=== PATIENT | female | born 1970 | race Caucasian/White ===

== ENCOUNTER → 2016-09-24 12:16 | Outpatient (CLI) | payer BC ==
[2014-12-23 11:02] VITALS: BMI 48.0
[~2016-09-24 12:16] MED LIST: NORCO 10/325 TA1 TA1 PO; PRISTIQ50 MG PO; ZESTORETIC 10/11 TAB PO
[2016-09-24 13:02] LABS: BASOPHILS 1.1 % (0.0-2.0); EOSINOPHILS 1.4 % (0-7); HEMOGLOBIN 12.4 g/dL (12-16); IMMATURE GRANULOCYTES 0.2 % (0-5); LYMPHOCYTES 32.1 % (15-50); MCHC 31.8 g/dL (31.0-37.0); MCV 91.3 fL (80.0-100.0); MONOCYTES 7.3 % (2-11); NEUTROPHILS 57.9 % (40-80); PLATELET COUNT 296 10x3/uL (130-400); RBC 4.27 10x6/uL (4.00-5.40); WBC 6.4 10x3/uL (4.8-10.8)
[2016-09-24 13:11] LABS: APPEARANCE CLEAR (CLEAR); BILIRUBIN NEGATIVE (NEGATIVE); COLOR YELLOW (YELLOW); GLUCOSE NEGATIVE (NEGATIVE); KETONE NEGATIVE (NEGATIVE); LEUKOCYTE ESTERASE NEGATIVE (NEGATIVE); NITRITE NEGATIVE (NEGATIVE); PROTEIN NEGATIVE (NEGATIVE); UROBILINOGEN NORMAL (NORMAL)
[2016-09-24 13:17] LABS: ALBUMIN 3.3 g/dL (3.4-5.0); C-REACTIVE PROTEIN 0.4 mg/dL (0.0-0.9); CREATININE - SERUM 1.1 mg/dL (0.6-1.3); PROTEIN - URINE 34.3 mg/dL (0.0-11.9)
[2016-09-24 13:24] LABS: CREATININE - URINE 236.8 mg/dL (30-125); PRO/CRE RATIO URINE 0.1 mg/g
[2016-09-24 14:20] LABS: ERYTHROCYTE SEDIMENTATION RATE 34 mm/hr (0-20)
== END | disposition home or self-care (01) ==
LOC: D.LAB 09-22 14:54
PROVIDERS: Internal Medicine Rheumatology
DX: M32.8 Other forms of systemic lupus erythematosus (principal)

== ENCOUNTER → 2017-01-20 16:35 | Outpatient (CLI) | payer BC ==
[2014-12-23 11:02] VITALS: BMI 48.0
[2017-01-20 17:24] LABS: BASOPHILS 0.8 % (0-2); EOSINOPHILS 1.3 % (0-7); HEMATOCRIT 40.1 % (36.0-48.0); HEMOGLOBIN 12.8 g/dL (12-16); IMMATURE GRANULOCYTES 0.1 % (0-5); LYMPHOCYTES 40.1 % (15-50); MCH 29.2 pg (26.0-34.0); MCHC 31.9 g/dL (31.0-37.0); MCV 91.6 fL (80.0-100.0); MEAN PLATELET VOLUME 10.5 fL (7.4-10.4); MONOCYTES 5.1 % (2-11); NEUTROPHILS 52.6 % (40-80); PLATELET COUNT 306 10x3/uL (130-400); RBC 4.38 10x6/uL (4.00-5.40); RDW 13.2 % (11.5-14.5); WBC 7.8 10x3/uL (4.8-10.8)
[2017-01-20 17:38] LABS: ALBUMIN 3.7 g/dL (3.4-5.0); APPEARANCE CLEAR (CLEAR); BILIRUBIN NEGATIVE (NEGATIVE); C-REACTIVE PROTEIN 0.6 mg/dL (0.0-0.9); COLOR YELLOW (YELLOW); GLUCOSE NEGATIVE (NEGATIVE); KETONE NEGATIVE (NEGATIVE); LEUKOCYTE ESTERASE NEGATIVE (NEGATIVE); NITRITE NEGATIVE (NEGATIVE); PROTEIN NEGATIVE (NEGATIVE); SPECIFIC GRAVITY 1.015 (1.005-1.020); UROBILINOGEN NORMAL (NORMAL)
[2017-01-20 18:32] LABS: ERYTHROCYTE SEDIMENTATION RATE 54 mm/hr (0-20)
[2017-01-22 10:21] LABS: ANA REFLEX - DBL STRANDED DNA 3 IU/mL (0-9)
[2017-01-22 13:18] LABS: ANA REFLEX - ANTICHROMATIN ABS <0.2 AI (0.0-0.9); ANA REFLEX - CENTROMERE B ABS <0.2 AI (0.0-0.9); ANA REFLEX - DIRECT Positive (Negative); ANA REFLEX - JO-1 AB <0.2 AI (0.0-0.9); ANA REFLEX - RNP ANTIBODIES 1.2 AI (0.0-0.9); ANA REFLEX - SCL-70 <0.2 AI (0.0-0.9); ANA REFLEX - SJOGRENS AB SSA <0.2 AI (0.0-0.9); ANA REFLEX - SJOGRENS AB SSB <0.2 AI (0.0-0.9); ANA REFLEX - SMITH AB 0.2 AI (0.0-0.9)
== END | disposition home or self-care (01) ==
LOC: D.LAB 16:35
PROVIDERS: Internal Medicine Rheumatology
DX: M32.8 Other forms of systemic lupus erythematosus (principal)

== ENCOUNTER → 2017-04-28 16:06 | Outpatient (CLI) | payer BC ==
[2014-12-23 11:02] VITALS: BMI 48.0
[2017-04-28 16:39] LABS: BASOPHILS 0.7 % (0-2); EOSINOPHILS 1.5 % (0-7); HEMATOCRIT 38.4 % (36.0-48.0); HEMOGLOBIN 12.2 g/dL (12-16); IMMATURE GRANULOCYTES 0.1 % (0-5); LYMPHOCYTES 38.2 % (15-50); MCH 29.2 pg (26.0-34.0); MCHC 31.8 g/dL (31.0-37.0); MCV 91.9 fL (80.0-100.0); MEAN PLATELET VOLUME 10.3 fL (7.4-10.4); MONOCYTES 8.8 % (2-11); NEUTROPHILS 50.7 % (40-80); PLATELET COUNT 292 10x3/uL (130-400); RBC 4.18 10x6/uL (4.00-5.40); RDW 13.6 % (11.5-14.5); WBC 6.7 10x3/uL (4.8-10.8)
[2017-04-28 16:57] LABS: PROTEIN - URINE 44.8 mg/dL (0.0-11.9)
[2017-04-28 17:02] LABS: CREATININE - URINE 238.2 mg/dL (30-125)
[2017-04-28 17:18] LABS: APPEARANCE HAZY (CLEAR); BILIRUBIN NEGATIVE (NEGATIVE); COLOR YELLOW (YELLOW); GLUCOSE NEGATIVE (NEGATIVE); KETONE NEGATIVE (NEGATIVE); LEUKOCYTE ESTERASE 2+ (NEGATIVE); NITRITE NEGATIVE (NEGATIVE); PROTEIN NEGATIVE (NEGATIVE); SPECIFIC GRAVITY 1.025 (1.005-1.020); UROBILINOGEN NORMAL (NORMAL)
[2017-04-28 17:19] LABS: ALBUMIN 3.5 g/dL (3.4-5.0); BACTERIA MANY /hpf (NONE SEEN); EPITHELIAL CELLS 0-5 /hpf (0-5); RED CELLS - URINE 0-5 /hpf (0-5)
[2017-04-28 17:21] LABS: COMPLEMENT C4 23.3 mg/dL (17.4-52.2)
[2017-04-28 17:50] LABS: ERYTHROCYTE SEDIMENTATION RATE 45 mm/hr (0-20)
== END | disposition home or self-care (01) ==
LOC: D.LAB 16:06
PROVIDERS: Internal Medicine Rheumatology
DX: M32.9 Systemic lupus erythematosus, unspecified (principal)

== ENCOUNTER → 2017-10-09 09:52 | Outpatient (CLI) | payer BC ==
[2014-12-23 11:02] VITALS: BMI 48.0
[2017-10-09 10:24] LABS: APPEARANCE CLEAR (CLEAR); BILIRUBIN NEGATIVE (NEGATIVE); COLOR YELLOW (YELLOW); GLUCOSE NEGATIVE (NEGATIVE); KETONE NEGATIVE (NEGATIVE); NITRITE NEGATIVE (NEGATIVE); PROTEIN NEGATIVE (NEGATIVE); SPECIFIC GRAVITY 1.015 (1.005-1.020); UROBILINOGEN NORMAL (NORMAL)
[2017-10-09 10:25] LABS: BACTERIA MODERATE /hpf (NONE SEEN); MUCUS <1+ /lpf (NONE SEEN); RED CELLS - URINE OCC /hpf (0-5); WHITE CELLS - URINE 0-5 /hpf (0-5)
[2017-10-09 10:29] LABS: BASOPHILS 1.1 % (0-2); EOSINOPHILS 1.7 % (0-7); HEMATOCRIT 38.4 % (36.0-48.0); HEMOGLOBIN 12.4 g/dL (12-16); IMMATURE GRANULOCYTES 0.2 % (0-5); LYMPHOCYTES 29.5 % (15-50); MCH 29.5 pg (26.0-34.0); MCHC 32.3 g/dL (31.0-37.0); MCV 91.2 fL (80.0-100.0); MEAN PLATELET VOLUME 10.5 fL (7.4-10.4); MONOCYTES 6.9 % (2-11); NEUTROPHILS 60.6 % (40-80); PLATELET COUNT 293 10x3/uL (130-400); RBC 4.21 10x6/uL (4.00-5.40); WBC 4.6 10x3/uL (4.8-10.8)
[2017-10-09 10:34] LABS: PROTEIN - URINE 28.3 mg/dL (0.0-11.9)
[2017-10-09 10:46] LABS: COMPLEMENT C4 20.7 mg/dL (17.4-52.2)
[2017-10-09 10:48] LABS: ALBUMIN 3.3 g/dL (3.4-5.0); C-REACTIVE PROTEIN 0.6 mg/dL (0.0-0.9); CREATININE - SERUM 0.9 mg/dL (0.6-1.3)
[2017-10-09 11:31] LABS: ERYTHROCYTE SEDIMENTATION RATE 30 mm/hr (0-20)
== END | disposition home or self-care (01) ==
LOC: D.LAB 09:52
PROVIDERS: Internal Medicine Rheumatology
DX: M32.8 Other forms of systemic lupus erythematosus (principal)

== ENCOUNTER → 2017-11-24 18:00 | Outpatient (CLI) | payer BC ==
[2014-12-23 11:02] VITALS: BMI 48.0
== END ==
LOC: D.MAMMO 10:30
DX: Z12.31 Encounter for screening mammogram for malignant neoplasm of breast (principal)

== ENCOUNTER → 2018-04-09 11:10 | Outpatient (CLI) | payer BC ==
[2014-12-23 11:02] VITALS: BMI 48.0
[2018-04-09 11:59] LABS: CREATININE - URINE 108.4 mg/dL (30-125); PRO/CRE RATIO URINE 0.2 mg/g; PROTEIN - URINE 18.4 mg/dL (0.0-11.9)
[2018-04-09 12:01] LABS: BASOPHILS 0.4 % (0-2); EOSINOPHILS 1.6 % (0-7); HEMATOCRIT 38.7 % (36.0-48.0); HEMOGLOBIN 12.4 g/dL (12-16); IMMATURE GRANULOCYTES 0.1 % (0-5); LYMPHOCYTES 28.6 % (15-50); MCH 29.5 pg (26.0-34.0); MCV 91.9 fL (80.0-100.0); MEAN PLATELET VOLUME 10.4 fL (7.4-10.4); MONOCYTES 7.2 % (2-11); NEUTROPHILS 62.1 % (40-80); PLATELET COUNT 252 10x3/uL (130-400); RBC 4.21 10x6/uL (4.00-5.40); RDW 13.2 % (11.5-14.5)
[2018-04-09 12:06] LABS: ALBUMIN 3.2 g/dL (3.4-5.0); C-REACTIVE PROTEIN 0.7 mg/dL (0.0-0.9)
[2018-04-09 12:33] LABS: COMPLEMENT C4 23.8 mg/dL (17.4-52.2)
[2018-04-09 12:39] LABS: APPEARANCE CLEAR (CLEAR); COLOR YELLOW (YELLOW); SPECIFIC GRAVITY 1.015 (1.005-1.020)
[2018-04-09 12:40] LABS: BILIRUBIN NEGATIVE (NEGATIVE); GLUCOSE NEGATIVE (NEGATIVE); KETONE NEGATIVE (NEGATIVE); NITRITE NEGATIVE (NEGATIVE); PROTEIN NEGATIVE (NEGATIVE); UROBILINOGEN NORMAL (NORMAL)
[2018-04-09 12:41] LABS: BACTERIA MODERATE /hpf (NONE SEEN); EPITHELIAL CELLS 0-5 /hpf (0-5); RED CELLS - URINE 0-5 /hpf (0-5); WHITE CELLS - URINE OCC /hpf (0-5)
[2018-04-09 13:00] LABS: ERYTHROCYTE SEDIMENTATION RATE 43 mm/hr (0-20)
[2018-04-10 10:21] LABS: ANA REFLEX - DBL STRANDED DNA 2 IU/mL (0-9); ANA REFLEX - DIRECT Negative (Negative)
== END | disposition home or self-care (01) ==
LOC: D.LAB 11:10
PROVIDERS: Internal Medicine Rheumatology
DX: M32.8 Other forms of systemic lupus erythematosus (principal)

== ENCOUNTER → 2018-10-12 15:18 | Outpatient (CLI) | payer BC ==
[2014-12-23 11:02] VITALS: BMI 48.0
[2018-10-12 15:47] LABS: EOSINOPHILS 2.5 % (0-7); HEMATOCRIT 39.8 % (36.0-48.0); HEMOGLOBIN 12.9 g/dL (12-16); IMMATURE GRANULOCYTES 0.2 % (0-5); LYMPHOCYTES 34.5 % (15-50); MCH 29.6 pg (26.0-34.0); MCHC 32.4 g/dL (31.0-37.0); MCV 91.3 fL (80.0-100.0); MEAN PLATELET VOLUME 9.8 fL (7.4-10.4); MONOCYTES 5.6 % (2-11); NEUTROPHILS 56.2 % (40-80); RBC 4.36 10x6/uL (4.00-5.40); RDW 12.8 % (11.5-14.5); WBC 6.1 10x3/uL (4.8-10.8)
[2018-10-12 15:48] LABS: PLATELET COUNT 309 10x3/uL (130-400)
[2018-10-12 15:51] LABS: APPEARANCE CLEAR (CLEAR); BILIRUBIN NEGATIVE (NEGATIVE); COLOR YELLOW (YELLOW); GLUCOSE NEGATIVE (NEGATIVE); KETONE NEGATIVE (NEGATIVE); NITRITE NEGATIVE (NEGATIVE); PROTEIN NEGATIVE (NEGATIVE); SPECIFIC GRAVITY 1.025 (1.005-1.020); UROBILINOGEN NORMAL (NORMAL)
[2018-10-12 16:00] LABS: ALBUMIN 3.2 g/dL (3.4-5.0); C-REACTIVE PROTEIN 0.9 mg/dL (0.0-0.9); CALCIUM 8.5 mg/dL (8.5-10.1); CREATININE - SERUM 1.1 mg/dL (0.6-1.3); PHOSPHOROUS 3.7 mg/dL (2.5-4.9)
[2018-10-12 16:52] LABS: ERYTHROCYTE SEDIMENTATION RATE 51 mm/hr (0-20)
[2018-10-12 16:56] LABS: COMPLEMENT C4 25.4 mg/dL (17.4-52.2)
== END | disposition home or self-care (01) ==
LOC: D.LAB 15:18
PROVIDERS: Internal Medicine Rheumatology
DX: M32.8 Other forms of systemic lupus erythematosus (principal)